=== PATIENT | male | born 1975 | race African-American/Black ===

== ENCOUNTER 2020-05-18 05:31 | Emergency (ER) | payer OTHER ==
[~2020-05-18] VITALS: Ht 177.8 cm; Wt 90.0 kg
[2020-05-18] MEDS ORDERED: MORPHINE SULFATE 4 MG/ML CPJ (NOT FOR IM USE) IV STA (06:20)
[2020-05-18] MEDS ORDERED: ONDANSETRON HCL 4MG/2ML INJ IV STA (06:20)
[2020-05-18 06:53] LABS: CHLORIDE 108 mEq/L (98-107)
[2020-05-18 07:01] LABS: BASOPHILS % 0.5 % (0.0-2.0); EOSINOPHILS % 1.7 % (0.0-5.0); HEMATOCRIT. 42.1 % (42.0-52.0); HEMOGLOBIN. 13.9 g/dL (14.0-18.0); LYMPHOCYTES % 12.8 % (20.0-50.0); MEAN CORPUSCULAR HEMOGLOBIN 30.9 pg (28.0-32.0); MEAN CORPUSCULAR VOLUME 93.6 fL (80.0-94.0); MEAN PLATELET VOLUME 9.9 fl (7.4-10.4); MONOCYTES % 7.3 % (2.0-8.0); NEUTROPHILS % 77.7 % (40.0-76.0); PLATELET 176 x1000/uL (130-400); RED BLOOD CELL COUNT 4.49 mill/uL (4.7-6.1); RED CELL DISTRIBUTION WIDTH 14.4 % (11.6-14.6)
[2020-05-18 08:42] VITALS: BP 124/72
[2020-05-18 09:50] LABS: CLARITY URINE CLEAR (CLEAR); COLOR URINE YELLOW (YELLOW); KETONES URINE NEGATIVE (NEGATIVE); LEUKOCYTE ESTERASE URINE 2+ (NEGATIVE); NITRITE URINE NEGATIVE (NEGATIVE); OCCULT BLOOD URINE 1+ (NEGATIVE); PROTEIN URINE NEGATIVE (NEGATIVE); UROBILINOGEN URINE 0.2 E.U./dL (0.2-1.0)
== END 2020-05-18 08:51 | disposition home or self-care (01) ==
LOC: ER 05:31
DX: N13.2 Hydronephrosis with renal and ureteral calculous obstruction (principal); G40.909 Epilepsy, unspecified, not intractable, without status epilepticus; F17.210 Nicotine dependence, cigarettes, uncomplicated; F14.10 Cocaine abuse, uncomplicated; F12.10 Cannabis abuse, uncomplicated; Z71.6 Tobacco abuse counseling
CPT/HCPCS: 36415; 73130; 76770; 80053; 81003; 83690; 85025; 93005; 96374; 96375; 99285; 99406; J2270; J2405